=== PATIENT | male | born 1950 | race Caucasian/White ===

== ENCOUNTER 2018-06-15 14:21 | Emergency (ER) ==
[2018-06-15 14:29] VITALS: BP 127/82; TEMP 99.9; BMI 35.9
--- NOTE | 2018-06-15 15:31 | ED.PDOC ---
General ED Provider: Dr. JULIO CESAR PATEL Chief Complaint: Respiratory Complaint Stated Complaint: FLU LIKE SYMP Time Seen by Physician: 14:14 Mode of Arrival: Walk-In Information Source: Patient, Family Exam Limitations: No limitations Primary Care Provider: DANIELLA FARFAN Nursing and Triage Documentation Reviewed and Agree: Yes Does patient meet sepsis criteria?: No System Inflammatory Response Syndrome: Not Applicable Sepsis Protocol: For patient's 13 years and over: Temp is 96.8 and below OR 101 and greater Pulse >90 BPM Resp >20/minute Acutely Altered Mental Status Are patient's symptoms suggestive of a new infection, such as: -Pneumonia -Skin, Soft Tissue -Endocarditis -UTI -Bone, Joint Infection -Implantable Device -Acute Abdominal Infection -Wound Infection -Meningitis -Blood Stream Catheter Infection -Unknown Respiratory Complaint Exam - Respiratory Complaint/Exam Symptoms Are: Still present Timing: Intermittent Initial Severity: Mild Current Severity: Mild Location: Nose, Throat, Chest Character: Reports: Non-productive cough, Dry cough Aggravating: Reports: None Alleviating: Reports: None Associated Signs and Symptoms: Reports: Chills, URI, Nasal congestion. Denies: Rapid breathing, Dyspnea, Fever, Chest pain, Pleuritic chest pain, Wheezing, Hemoptysis, Dizziness, Calf pain, Calf swelling, Edema, Hoarseness, Sinus discomfort, Vomiting, Sore throat, Weight loss, Decreased oral intake, Increased thirst, Increased appetite, Increased urination Related History: Reports: Similar episode History of Healthcare-Acquired Pneumonia: No Related Surgical History: Reports: None Pulmonary Embolism Risk Factors: None Cardiac Risk Factors: Reports: None Pseudomonas Risk Factors: Reports: None Tuberculosis Risk Factors: Reports: None Status Asthmaticus Risk Factors: Reports: None Home Oxygen Use: No Recent Stress Test: No Recent Echo/LV Function: No Current Antibiotic Use: No Current Asthma Medication Use: No Respiratory Distress: None Inadequate Respiratory Effort: No Dysphagia Present: No Stridor Present: No JVD Present: No Accessory Muscle Use: No Retractions: Not Present Diminished Breath Sounds: No Sinus Tenderness: None Differential Diagnoses: Pneumonia, Bronchitis, URI, Influenza Review of Systems - Review Of Systems Constitutional: Reports: No symptoms Eyes: Reports: No symptoms Ears, Nose, Mouth, Throat: Reports: No symptoms Respiratory: Reports: Cough Cardiac: Reports: No symptoms GI: Reports: No symptoms : Reports: No symptoms Musculoskeletal: Reports: No symptoms Skin: Reports: No symptoms Neurological: Reports: No symptoms Endocrine: Reports: No symptoms Hematologic/Lymphatic: Reports: No symptoms All Other Systems: Reviewed and Negative Past Medical History - Past Medical History Previously Healthy: Yes Endocrine: Reports: None Cardiovascular: Reports: None Respiratory: Reports: None Hematological: Reports: None Gastrointestinal: Reports: None Genitourinary: Reports: None Neuro/Psych: Reports: None Musculoskeletal: Reports: None Cancer: Reports: None - Surgical History General Surgical History: Reports: None - Family History Family History: Reports: None - Social History Smoking Status: Former smoker Hx Substance Use: No Alcohol Screening: Occasionally Physical Exam - Physical Exam Appearance: Well-appearing, No pain distress, Well-nourished Eyes: DREW, EOMI, Conjunctiva clear ENT: Ears normal, Nose normal, Oropharynx normal Respiratory: Airway patent, Breath sounds clear, Breath sounds equal, Respirations nonlabored Cardiovascular: RRR, Pulses normal, No rub, No murmur GI/: Soft, Nontender, No masses, Bowel sounds normal, No Organomegaly Musculoskeletal: Normal strength, ROM intact, No edema, No calf tenderness Skin: Warm, Dry, Normal color Neurological: Sensation intact, Motor intact, Reflexes intact, Cranial nerves intact, Alert, Oriented Psychiatric: Affect appropriate, Mood appropriate Critical Care Note - Critical Care Note Total Time (mins): 0 Course - Course Orders, Labs, Meds: Lab Review 06/15/18 15:05 Influ A Molecular Assay Negative by naat Influ B Molecular Assay Negative by naat Orders Category Date Time Status FLU A/B MOLECULAR Stat LAB 06/15/18 15:05 Completed RAPID STREP SCREEN [MOLECULAR GROUP A STREP] Stat LAB 06/15/18 15:[address] CHEST W/O CONTRAST Stat RADS 06/15/18 15:20 Ordered Vital Signs: Temp Pulse Resp BP Pulse Ox 06/15/18 14:21 99.9 F H 81 20 127/82 95 Departure - Departure Time of Disposition: 16:00 Disposition: HOME SELF-CARE Discharge Problem: Viral syndrome Instructions: Viral Syndrome (ED), Acute Cough (ED) Condition: Good Pt referred to PMD for follow-up: Yes IPMP verified?: No Additional Instructions: Please call your Family Physician as soon as possible to schedule a follow-up appointment. Allergies/Adverse Reactions: Allergies No Known Allergies Allergy (Unverified 06/15/18 14:32) Home Medications: Ambulatory Orders Acetaminophen/Diphenhydramine [Tylenol Pm Ex-Strength Caplet] 1 each PO BEDTIME PRN 06/15/18 Amlodipine Besylate 5 mg PO DAILY 06/15/18 Aspirin [Aspir-Low] 81 mg PO DAILY 06/15/18 Aspirin [Aspirin EC] 81 mg PO DAILY 06/15/18 Atorvastatin Calcium 40 mg PO DAILY 06/15/18 Clopidogrel Bisulfate [Clopidogrel] 75 mg PO DAILY 06/15/18 Docusate Sodium 250 mg PO DAILY 06/15/18 Escitalopram Oxalate 20 mg PO DAILY 06/15/18 Fenofibric Acid (Choline) [Fenofibric Acid] 135 mg PO DAILY 06/15/18 Fluticasone Propionate 16 gm NS PRN PRN 06/15/18 Lisinopril [Zestril] 5 mg PO DAILY 06/15/18 Methylcellulose [Citrucel] 500 mg PO DAILY 06/15/18 Nitroglycerin 0.4 mg SL PRN PRN 06/15/18 Arbon-3S/Dha/Epa/Fish Oil/D3 [Arbon-3 + D Softgel] 1 each PO DAILY 06/15/18 Pantoprazole Sodium [Protonix] 40 mg PO DAILY 06/15/18 Disposition Discussed With: Patient, Family
--- NOTE | 2018-06-15 15:40 | CT ---
EXAM: CT of the chest without contrast History: Cough. Comparison: Chest radiograph 06/02/2015 Technique: Multiplanar CT images through the thorax were obtained without the administration of IV c ontrast Findings: Heart size is normal. No pericardial effusion. Coronary calcifications. Sternotomy wire s. No thoracic aortic aneurysm. No pathologically enlarged thoracic lymph nodes. No consolidation. No pleural fluid and no pneumothorax. No lung masses or lung nodules. Within the visualized upper abdomen, a subtle nodular surface contour of the liver. No acute osseous abnormalities. Impression: 1. No acute intrathoracic process. 2. Coronary artery disease. 3. Cirrhotic architecture of the liver
== END 2018-06-15 16:12 | disposition home or self-care (01) ==
LOC: ED 14:21
DX: R06.9 Unspecified abnormalities of breathing (principal); J06.9 Acute upper respiratory infection, unspecified; R09.81 Nasal congestion; R05 Cough; B34.9 Viral infection, unspecified
CPT/HCPCS: 87502; 87651; 99283